=== PATIENT | female | born 1985 | race Caucasian/White ===

== ENCOUNTER 2019-05-21 13:44 | Emergency (ER) | payer SELFPAY ==
[~2019-05-21] VITALS: Ht 160 cm; Wt 88.2 kg
[2019-05-21 13:51] VITALS: Ht 160 cm; Wt 88.2 kg
[2019-05-21 14:31] LABS: APPEARANCE SL CLDY (CLEAR); BILIRUBIN NEGATIVE (NEGATIVE); COLOR DK YELLOW (YELLOW); GLUCOSE 1000 mg/dL (NEGATIVE); KETONE NEGATIVE (NEGATIVE); NITRITE NEGATIVE (NEGATIVE); PROTEIN TRACE mg/dL (NEGATIVE); SPECIFIC GRAVITY 1.025 (1.005-1.020); UROBILINOGEN NORMAL (NORMAL)
[2019-05-21 14:33] LABS: BACTERIA MODERATE /hpf (NEGATIVE); RED CELLS - URINE 0-5 /hpf (0-5)
[2019-05-21 14:35] LABS: MUCUS <1+ /lpf (NONE SEEN)
[2019-05-21] MEDS ORDERED: MACROBID100 MG PO (15:01)
[2019-05-21] MEDS ORDERED: PHENAZOPYRIDIN100 MG PO (15:01)
[2019-05-21 15:25] VITALS: BP 128/74
== END 2019-05-21 15:26 | disposition home or self-care (01) ==
LOC: D.ER 13:44
PROVIDERS: Family Medicine
DX: N39.0 Urinary tract infection, site not specified (principal)